=== PATIENT | male | born 1945 | race Caucasian/White ===

== ENCOUNTER 2018-10-14 07:54 | Inpatient (IN) | payer MEDICARE, BC ==
[2018-10-14 08:21] VITALS: BP 127/74
[2018-10-14] MEDS ORDERED: Maalox 30 mL Cup PO PRN (08:48)
[2018-10-14] MEDS ORDERED: Magnesium Hydroxide (MOM) 30 mL UDC PO PRN (08:48)
[2018-10-14 09:59] LABS: CHOLESTEROL 129 mg/dL (<200); HDL -HIGH DENSITY LIPOPROTEIN 28 mg/dL (23-92); TRIGLYCERIDES 203 mg/dL (<150)
--- NOTE | 2018-10-15 01:54 | History & Physical ---
ADMIT DATE: 10/14/2018 ATTENDING PHYSICIAN: Dr. Sabillon. PRODUCT PROMOTER SALES PERSON: Dr. Kendrick Atkinson. REASON FOR CONSULTATION: Internal medicine coverage. HISTORY OF PRESENT ILLNESS: This is a 73-year-old male with past medical history of prediabetes, who was brought in because of suicidal ideation. A few hours prior to admission, the patient reached out and was able to obtain a needle from a nurse. He attempted to stab himself. Thus, patient was transferred to [facility] because of increased risk of suicide. PAST MEDICAL HISTORY: 1. Benign tumor of the pituitary gland. 2. Prediabetes. CURRENT MEDICATIONS: Currently on acetaminophen, escitalopram oxalate, lorazepam, magnesium hydroxide as well as zolpidem tartrate. ALLERGIES: ALLERGIC TO SULFA. SOCIAL HISTORY: No history of tobacco use. He has a history of alcohol consumption and the last drink was 15 years ago. 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 FAMILY HISTORY: His brother committed suicide at age of 24. Both his parents had also attempted suicide. REVIEW OF SYSTEMS: Nothing significant. PHYSICAL EXAMINATION: GENERAL: The patient is sleeping, but arousable, not in any form of distress. VITAL SIGNS: His blood pressure is 107/62, pulse 65, temperature 97.2 degrees. SKIN: Good turgor, warm, no rash, no jaundice appreciated. HEENT: Head normocephalic, atraumatic. Eyes: Extraocular muscles intact. [place] conjunctivae. NECK: Supple, no adenopathy, no bruits. CHEST AND CARDIOVASCULAR: S1, S2. No rub nor murmur appreciated. LUNGS: Equal expansion. Clear to auscultation without wheeze. ABDOMEN: Mildly globular, soft. Positive for bowel sounds. EXTREMITIES: No evidence of any edema or cyanosis. NEURO: The patient is arousable, able to communicate. He has a problem following my neuro commands; however, he has voluntary movements of all of his extremities. IMPRESSION: 1. Suicidal ideation secondary to depression disorder. 2. Benign tumor of the pituitary gland. 3. Prediabetes. PLAN: 1. Continue escitalopram. 2. Continue Ativan. 3. Continue zolpidem. 4. Follow up labs, TSH, hemoglobin A1c, and urinalysis. JOB# [id number]
[2018-10-15 07:09] LABS: % BASOPHILS 1.2 % (0.0-2.0); % EOSINOPHILS 2.1 % (0.0-5.0); % LYMPHOCYTES 25.2 % (20.0-50.0); % MONOCYTES 9.9 % (2.0-10.0); % NEUTROPHILS 61.6 % (40.0-80.0); BASOPHILE ABSOLUTE 0.1 Th/cumm (0-0.2); EOSINOPHILE ABSOLUTE 0.1 Th/cmm (0.1-0.4); HEMATOCRIT 48.1 % (41.0-60); HEMOGLOBIN 15.7 gm/dL (12-16); LYMPHOCYTE ABSOLUTE 1.3 Th/cmm (1.5-3.0); MEAN CELL VOLUME 96.5 fl (80-99); MEAN CORPUSCULAR HEMOGLOBIN 31.6 pg (27.0-31.0); MEAN CORPUSCULAR HGB CONC 32.7 pg (28.0-36.0); MEAN PLATELET VOLUME 7.5 fl; MONOCYTE ABSOLUTE 0.5 Th/cmm (0.3-1.0); NEUTROPHILE ABSOLUTE 3.3 Th/cmm (1.8-8.0); PLATELET COUNT 191 Th/cmm (150-400); RED BLOOD COUNT 4.98 Mil/cmm (3.80-5.80); WHITE BLOOD COUNT 5.3 Th/cmm (4.8-10.8)
[2018-10-15 07:23] LABS: ALB/GLOB RATIO 1.8 (1.0-1.8); ALBUMIN 3.7 gm/dL (4.2-5.5); ALKALINE PHOSPHATASE 57 U/L (34-104); ANION GAP 12.9 (7.0-16.0); BUN - UREA NITROGEN 18 mg/dL (7-25); CALCIUM SERUM 9.3 mg/dL (8.6-10.3); CARBON DIOXIDE 24.2 mEq/L (21.0-31.0); CHLORIDE 106 mEq/L (98-107); CREATININE - SERUM 1.2 mg/dL (0.7-1.3); GLUCOSE 123 mg/dL (70-105); POTASSIUM SERUM 4.1 mEq/L (3.5-5.1); SGOT 15 U/L (13-39); SGPT/ALT 10 U/L (7-52); SODIUM SERUM 139 mEq/L (136-145); TOTAL PROTEIN,SERUM 5.8 gm/dL (6.0-8.3)
--- NOTE | 2018-10-16 04:27 | Psychiatric Evaluation ---
DATE OF SERVICE: 10/15/2018 JUSTIFICATION FOR THE HOSPITALIZATION: Suicidal. HISTORY OF PRESENT ILLNESS: A 73-year-old male with history of prediabetes, suicidal ideations, very depressed, notes he has been suicidal for a few months due to financial difficulties, history of trauma in the past, also was recently scammed out of a lot of money, cannot pay his rent now. The patient is hopeless, despairing, feeling helpless, erratic sleep, poor energy, anhedonia. PAST PSYCHIATRIC HISTORY: No suicide attempts. FAMILY HISTORY: Mother, father, brother have attempted suicide. SOCIAL HISTORY: Born in [place], living in [place], not , no kids. Denies any drugs, alcohol, or tobacco. 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 MENTAL STATUS EXAMINATION: Stated age. Fair eye contact. Speech within normal limits. Mood depressed. Affect withdrawn. Thought processes were linear. The patient with SI, no HI. No psychotic symptoms. Insight and judgment seemed diminished. PROVISIONAL DIAGNOSES: Major depression, recurrent, severe, no psychosis, also panic disorder, anxiety, unspecified. MEDICAL: Please see full H and P. ESTIMATED LENGTH OF STAY: 5-7 days. ASSESSMENT: The patient is depressed, suicidal, ongoing suicidal symptoms. Currently on one to one . PLAN: We will continue to monitor. Treatment plan includes group as well as milieu therapy. We will adjust and titrate medications. CONDITIONS FOR DISCHARGE: Improved mood, improved affect, cessation of any SI, better coping. JOB# [id number]
--- NOTE | 2018-10-16 15:26 | Progress Notes ---
DATE: 10/16/[address] Sabillon. Case was discussed with staff of the patient, reviewed records. This is a 73-year-old male who was admitted on 10/14/2018 with a history of prediabetes, suicidal ideation, depressed, notes he has been suicidal for a few months because of financial difficulties, history of trauma in the past, recently scammed out of a lot of money, cannot pay his rent now. He is hopeless, despairing, feeling helpless, erratic sleep, poor energy, anhedonia. He has no history of prior suicide attempt. Positive family history of attempted suicide, father, brother and mother. The patient continues to be depressed, overwhelmed, continues to be unpredictable, impulsive, depressed. Dr. José started him on Lexapro 10 mg a day. The patient is compliant with the medication with no side effects, no sedation, no nausea and we will continue with the patient in group therapy, milieu therapy, adjust medication as needed. [facility]# [id number]
[2018-10-17] MEDS: Aspirin 81mg Chewable Tab PO SCH (09:00)
[2018-10-17] MEDS: Oxybutynin Chloride 5 mg ER Tab PO SCH (09:42)
[2018-10-17] MEDS: Atorvastatin Calcium 10 MG TAB PO SCH (09:43)
[2018-10-17] MEDS: Fish Oil 1,000 MG SGL PO SCH ×2 (09:43→16:56)
[2018-10-17 15:23] LABS: URINE SOURCE MIDSTREAM
[2018-10-17 15:45] LABS: URINE BILIRUBIN NEGATIVE (NEGATIVE); URINE BLOOD TRACE (NEGATIVE); URINE GLUCOSE (UA) NEGATIVE (NEGATIVE); URINE KETONE NEGATIVE (NEGATIVE); URINE LEUKOCYTE ESTERASE NEGATIVE (NEGATIVE); URINE MICROSCOPIC INDICATED? YES; URINE NITRATE NEGATIVE (NEGATIVE); URINE PROTEIN NEGATIVE (NEGATIVE); URINE UROBILINOGEN 0.2 E.U./dL (0.2 - 1.0)
[2018-10-17 16:00] LABS: URINE CLARITY CLEAR (CLEAR); URINE COLOR YELLOW
[2018-10-17 16:01] LABS: URINE BACTERIA MODERATE /hpf (NONE SEEN); URINE EPITHELIAL CELLS NONE SEEN /lpf (FEW); URINE RBC NONE SEEN /hpf (0-5)
--- NOTE | 2018-10-17 23:28 | Progress Notes ---
DATE: 10/17/2018 Case was discussed with staff of the patient, reviewed records. The patient reports that he came here and he wanted help, though he is depressed. He reported that he is feeling a little bit better. He is sleeping better, eating better. He denies any current side effects with the medication, no sedation, no nausea. He tolerated the Lexapro with no side effects. He is on 1:1. We will continue the patient in group therapy, milieu therapy, and adjust medication as needed. JOB# [id number]
[2018-10-18] MEDS: Fish Oil 1,000 MG SGL PO SCH (08:27)
[2018-10-18] MEDS: Aspirin 81mg Chewable Tab PO SCH (08:27)
[2018-10-18] MEDS: Atorvastatin Calcium 10 MG TAB PO SCH (08:27)
[2018-10-18] MEDS: Oxybutynin Chloride 5 mg ER Tab PO SCH (08:28)
--- NOTE | 2018-10-18 21:56 | Progress Notes ---
DATE: 10/18/2018 SUBJECTIVE: The patient seen, chart reviewed, discussed with staff. The patient is currently in the hospital, seen today, 10/18/2018. I am familiar with this patient. He notes that he is doing clinically much better, happy with his medications. Now states he has got more support from friends, no longer considering suicide. Sleeping well, eating well. Noted to be brighter and broader affect. Staff noting robust improvement, well oriented. The patient notes that his anxiety is much less, much more calm. No psychological distress. ASSESSMENT: The patient linear, engaged, no SI, no HI. No psychosis. PLAN: We will recommend ____ 1:1, patient to follow up with Dr. Sabillon. JOB# [id number]
--- NOTE | 2018-10-19 05:36 | Progress Notes ---
DATE: SUBJECTIVE: Chart reviewed and the patient interviewed. Also discussed the patient's condition with the staff and reviewed records and labs. The patient is still anxious and is still in a depressed mood. The patient also is interacting minimally with others. The patient also continued to feel hopeless and helpless. He also is still guarded and withdrawn, but seems to be feeling slightly better than before. The patient is also started on Lexapro with no side effects. ASSESSMENT: The patient is still depressed, but he is showing some improvement. TREATMENT PLAN: Continue Lexapro in a dose of 10 mg every day. Also, we will discontinue 1:1 observation since the patient seems slightly better, but continue to work on his ineffective coping and his agitation. JOB# [id number]
[2018-10-19] MEDS: Fish Oil 1,000 MG SGL PO SCH (08:23)
[2018-10-19] MEDS: Atorvastatin Calcium 10 MG TAB PO SCH (08:24)
[2018-10-19] MEDS: Aspirin 81mg Chewable Tab PO SCH (08:25)
[2018-10-19] MEDS: Oxybutynin Chloride 5 mg ER Tab PO SCH (08:26)
--- NOTE | 2018-10-19 11:00 | Discharge Summary ---
DATE OF DISCHARGE: 10/19/2018 PATIENT'S AGE: 73-year-old. SEX: Male. PHYSICIAN: Gómez Sabillon MD, MPH FINAL DIAGNOSIS: PRIMARY DIAGNOSIS: Depressive mood disorder, unspecified. SECONDARY DIAGNOSIS: Generalized anxiety disorder with panic attacks. REASON FOR HOSPITALIZATION: The patient is a 73-year-old male who was admitted to the hospital because of increased depression and suicidal ideations because of financial difficulties. HOSPITAL COURSE: The patient continued to be anxious and depressed. The patient was interacting appropriately and expressed himself appropriately. The patient was started on Lexapro in a dose of 10 mg every day. The patient also was given Ativan on a p.r.n. basis. Gradually, the patient's affect was brighter. The patient was less depressed. The patient was not suicidal or homicidal, and he agreed to continue his treatment as an outpatient. PHYSICAL EXAM OF THE PATIENT: Was basically within normal and the patient had no major medical problems while in the hospital. AFTER DISCHARGE PLANS: The patient discharged from the hospital with plans for outpatient treatment and followup will continue as an outpatient. A prescription of psychotropic medications for 2 weeks with one refill was given to the patient upon discharge. EXPECTED OUTCOME AFTER DISCHARGE: Fair if the patient continues to take his psychotropic medications and follow up with discharge plans. [facility]# [id number]
== END 2018-10-19 13:00 | disposition home or self-care (01) | DRG 885 ==
LOC: GERO2 07:54
PROVIDERS: ADMIT Psychiatry & Neurology Psychiatry; ATTEND Psychiatry & Neurology Psychiatry
DX: F33.2 Major depressive disorder, recurrent severe without psychotic features (principal); R45.851 Suicidal ideations; F41.1 Generalized anxiety disorder; Z88.2 Allergy status to sulfonamides
CPT/HCPCS: 36415-UA; 80053-TC; 80061-TC; 81001-TC; 82948-90; 83036-90; 84443-TC; 85025-TC; 87086-90; Z7610